=== PATIENT | female | born 1930 | race African-American/Black ===

== ENCOUNTER 2016-08-06 10:09 | Day surgery (SDC) | payer MEDICARE, MEDICAID ==
[~2016-08-06] VITALS: Ht 160 cm; Wt 49.9 kg
[2016-08-06] MEDS ORDERED: FENTANYL CITRATE/PF 50MCG/ML 2ML VIAL ONE (10:26)
[2016-08-06 10:45] VITALS: BP 187/94
[2016-08-06 10:55] VITALS: BP 187/94
[2016-08-06] MEDS ORDERED: PHENOBARB (10:57)
[2016-08-06] MEDS ORDERED: DIGO250T4 PO (10:57)
[2016-08-06] MEDS ORDERED: PHEN100C4 PO (10:57)
[2016-08-06 11:00] VITALS: BP 185/79
[2016-08-06] MEDS ORDERED: FENTANYL CITRATE/PF 50MCG/ML 2ML VIAL IV ONE (11:15)
[2016-08-06 11:24] VITALS: BP 185/76
[2016-08-06 11:26] VITALS: BP 185/76
[2016-08-06] MEDS ORDERED: ACETAMINOPHEN 325MG TABLET PO SCH (14:08)
== END 2016-08-06 15:30 | disposition home or self-care (01) ==
LOC: RAD 10:09
PROVIDERS: ATTEND Internal Medicine
DX: R91.8 Other nonspecific abnormal finding of lung field (principal)
CPT/HCPCS: 32405; 71010; 77012; 88305; J3010

== ENCOUNTER → 2017-07-28 | Outpatient (CLI) | payer MEDICARE, MEDICAID ==
[~2017-07-28] MED LIST: DIGO250T4 PO; PHEN100C4 PO; PHENOBARB
== END | disposition home or self-care (01) ==
LOC: MAMMO 10:34
PROVIDERS: ATTEND Radiology Radiation Oncology
DX: Z85.3 Personal history of malignant neoplasm of breast (principal); Z85.89 Personal history of malignant neoplasm of other organs and systems; C34.32 Malignant neoplasm of lower lobe, left bronchus or lung
CPT/HCPCS: 77066

== ENCOUNTER → 2017-08-03 | Outpatient (CLI) | payer MEDICARE, MEDICAID | END | disposition home or self-care (01) | LOC: US 08:49 | PROVIDERS: ATTEND Radiology Radiation Oncology | DX: N63.10 Unspecified lump in the right breast, unspecified quadrant (principal); N60.11 Diffuse cystic mastopathy of right breast | CPT/HCPCS: 76641 ==

== ENCOUNTER 2018-07-09 13:50 | Inpatient (IN) | payer MEDICARE, MEDICAID ==
[~2018-07-09] VITALS: Ht 160 cm; Wt 51.7 kg
[2018-07-09] MEDS ORDERED: SODIUM CHLORIDE 0.9% 1000ML BAG (SEPSIS BOLUS) IV ONE (14:30)
[2018-07-09] MEDS ORDERED: LEVOFLOXACIN 750MG PREMIX 150 ML IV ONE (14:30)
[2018-07-09 14:56] LABS: CHLORIDE 109 mEq/L (98-107)
[2018-07-09 14:58] LABS: INR 1.1; PARTIAL THROMBOPLASTIN TIME 22.1 sec (23.4-31.0); PROTHROMBIN TIME 11.6 sec (9.6-11.0)
[2018-07-09 15:07] LABS: PHENOBARBITAL < 2.1 ug/mL (15.0-40.0)
[2018-07-09 15:19] LABS: DIGOXIN 0.9 ng/mL (0.9-2.0)
[2018-07-09 15:53] LABS: MEAN CORPUSCULAR HEMOGLOBIN 23.4 pg (28.0-32.0); MEAN PLATELET VOLUME 6.2 fl (7.4-10.4); PLATELET 319 x1000/uL (130-400); RED BLOOD CELL COUNT 2.36 mill/uL (4.2-5.4); RED CELL DISTRIBUTION WIDTH 16.4 % (11.6-14.6)
[2018-07-09 16:03] LABS: HEMATOCRIT. 17.7 % (36.0-48.0); HEMOGLOBIN. 5.5 g/dL (12.0-16.0)
[2018-07-09 16:46] LABS: CLARITY URINE CLEAR (CLEAR); COLOR URINE YELLOW (YELLOW); KETONES URINE NEGATIVE (NEGATIVE); LEUKOCYTE ESTERASE URINE NEGATIVE (NEGATIVE); NITRITE URINE NEGATIVE (NEGATIVE); OCCULT BLOOD URINE TRACE (NEGATIVE); PH URINE 5.5 (4.5-8.0); PROTEIN URINE 1+ (NEGATIVE); SPECIFIC GRAVITY URINE 1.017 (1.005-1.030)
[2018-07-09] MEDS ORDERED: LORAZEPAM 0.5MG TABLET PO PRN (19:30)
[2018-07-09] MEDS ORDERED: ACETAMINOPHEN 325MG TABLET PO PRN (19:30)
[2018-07-09] MEDS ORDERED: CLONIDINE 0.1MG TABLET PO PRN ×2 (19:30→20:13)
[2018-07-09] MEDS ORDERED: DOCUSATE SODIUM 100MG CAPSULE PO PRN (19:30)
[2018-07-09] MEDS ORDERED: GUAIFENESIN 200MG/10ML SUGAR FREE UDC PO PRN (19:30)
[2018-07-09 19:43] LABS: PLATELET ESTIMATE NORMAL
[2018-07-09 20:56] LABS: DIGOXIN 1.1 ng/mL (0.9-2.0)
[2018-07-09 22:30] VITALS: BP 134/66
[2018-07-09 23:49] VITALS: BP 134/66
[2018-07-10] VITALS (9 sets, daily range): BP systolic 117–154; BP diastolic 60–76
[2018-07-10] MEDS: PHENYTOIN SODIUM EXTENDED 100MG CAPSULE PO SCH ×3 (00:27→17:41)
[2018-07-10] MEDS: DEXT 5%/0.45% NACL 1000ML 1,000 ML IV SCH (00:28)
[2018-07-10 06:49] LABS: CHLORIDE 110 mEq/L (98-107)
[2018-07-10 07:40] LABS: BASOPHILS % 1.3 % (0.0-2.0); EOSINOPHILS % 7.1 % (0.0-5.0); HEMATOCRIT. 21.2 % (36.0-48.0); MEAN CORPUSCULAR HEMOGLOBIN 25.1 pg (28.0-32.0); MEAN CORPUSCULAR VOLUME 77.3 fL (81.0-99.0); MEAN PLATELET VOLUME 6.5 fl (7.4-10.4); MONOCYTES % 8.8 % (2.0-8.0); NEUTROPHILS % 72.8 % (40.0-76.0); PLATELET 266 x1000/uL (130-400); RED BLOOD CELL COUNT 2.74 mill/uL (4.2-5.4); RED CELL DISTRIBUTION WIDTH 17.7 % (11.6-14.6)
[2018-07-10 08:02] LABS: HEMOGLOBIN. 6.9 g/dL (12.0-16.0)
[2018-07-10] MEDS: FERROUS SULFATE 325MG TABLET PO SCH ×3 (08:39→17:42)
[2018-07-10] MEDS: DIGOXIN 125MCG TABLET PO SCH (17:42)
[2018-07-10 22:10] LABS: HEMATOCRIT 25.3 % (36.0-48.0); HEMOGLOBIN 8.6 g/dL (12.0-16.0)
[2018-07-11] VITALS: BP_SYST 145; BP_SYST 156; BP_DIAS 77; BP_DIAS 86
[2018-07-11] MEDS: DEXT 5%/0.45% NACL 1000ML 1,000 ML IV SCH ×2 (01:10→14:59)
[2018-07-11 04:00] VITALS: BP 161/83
[2018-07-11 06:50] LABS: EOSINOPHILS % 13.8 % (0.0-5.0); HEMATOCRIT. 24.2 % (36.0-48.0); HEMOGLOBIN. 8.2 g/dL (12.0-16.0); LYMPHOCYTES % 8.5 % (20.0-50.0); MEAN CORPUSCULAR HEMOGLOBIN 26.4 pg (28.0-32.0); MEAN PLATELET VOLUME 6.6 fl (7.4-10.4); MONOCYTES % 9.8 % (2.0-8.0); NEUTROPHILS % 66.9 % (40.0-76.0); PLATELET 243 x1000/uL (130-400); RED CELL DISTRIBUTION WIDTH 18.3 % (11.6-14.6)
[2018-07-11 07:26] LABS: CHLORIDE 108 mEq/L (98-107)
[2018-07-11 08:00] VITALS: BP 140/76
[2018-07-11] MEDS: PHENYTOIN SODIUM EXTENDED 100MG CAPSULE PO SCH ×2 (08:18→16:01)
[2018-07-11] MEDS: FERROUS SULFATE 325MG TABLET PO SCH ×3 (08:18→16:57)
[2018-07-11] MEDS ORDERED: LEVOFLOXACIN 500MG PREMIX 100 ML IV SCH ×2 (09:00→09:45)
[2018-07-11] MEDS ORDERED: MECL-127 MT (09:48)
[2018-07-11] MEDS ORDERED: FERR325T6 MT (09:48)
[2018-07-11] MEDS ORDERED: METH-612 MT (09:48)
[2018-07-11] MEDS ORDERED: PHEN32.43 MT (09:48)
[2018-07-11] MEDS: LEVOFLOXACIN 500MG PREMIX 100 ML IV SCH (11:49)
[2018-07-11 12:00] VITALS: BP 156/75
[2018-07-11] MEDS ORDERED: BACTERIOSTATIC SODIUM CHLORIDE 0.9% 30ML VIAL IJ ONE (13:41)
[2018-07-11 16:00] VITALS: BP 169/86
[2018-07-11] MEDS ORDERED: MIDAZOLAM HCL 5 MG/5 ML VIAL ONE (16:43)
[2018-07-11] MEDS ORDERED: FENTANYL CITRATE/PF 50MCG/ML 2ML VIAL ONE (16:43)
[2018-07-11] MEDS ORDERED: MIDAZOLAM HCL 5 MG/5 ML VIAL IV PRN (16:45)
[2018-07-11] MEDS: DIGOXIN 125MCG TABLET PO SCH (17:07)
[2018-07-11] MEDS ORDERED: IOHEXOL-300 100 ML BOTTLE ONE (19:41)
[2018-07-11 20:00] VITALS: BP 141/75
[2018-07-12] VITALS: BP 134/73
[2018-07-12 04:00] VITALS: BP 140/74
[2018-07-12] MEDS: DEXT 5%/0.45% NACL 1000ML 1,000 ML IV SCH ×2 (04:53→17:42)
[2018-07-12] MEDS: FERROUS SULFATE 325MG TABLET PO SCH ×3 (06:54→17:42)
[2018-07-12 08:00] VITALS: BP 104/71
[2018-07-12] MEDS: PHENYTOIN SODIUM EXTENDED 100MG CAPSULE PO SCH ×2 (08:54→17:42)
[2018-07-12 12:00] VITALS: BP 164/78
[2018-07-12 16:00] VITALS: BP 142/73
[2018-07-12] MEDS ORDERED: NA PHOS,M-B/NA PHOS,DI-BA ENEMA 118ML PR NR (18:15)
[2018-07-12] MEDS: DIGOXIN 125MCG TABLET PO SCH (18:57)
[2018-07-12 20:00] VITALS: BP 154/81
[2018-07-12] MEDS ORDERED: SORBITOL 70% SOLN 30ML PO NR (21:00)
[2018-07-12] MEDS: ONDANSETRON HCL 4MG/2ML INJ IV PRN (22:47)
[2018-07-13] VITALS: BP 142/78
[2018-07-13 04:00] VITALS: BP 147/78
[2018-07-13] MEDS ORDERED: SORBITOL 70% SOLN 30ML PO NR (06:00)
[2018-07-13 06:08] LABS: CHLORIDE 109 mEq/L (98-107)
[2018-07-13] MEDS: FERROUS SULFATE 325MG TABLET PO SCH ×3 (06:21→19:30)
[2018-07-13] MEDS: DEXT 5%/0.45% NACL 1000ML 1,000 ML IV SCH ×2 (06:22→19:32)
[2018-07-13] MEDS: ONDANSETRON HCL 4MG/2ML INJ IV PRN (06:26)
[2018-07-13 07:30] LABS: HEMATOCRIT 25.2 % (36.0-48.0); HEMOGLOBIN 8.5 g/dL (12.0-16.0); MEAN CORPUSCULAR HEMOGLOBIN 26.6 pg (28.0-32.0); MEAN CORPUSCULAR VOLUME 78.7 fL (81.0-99.0); PLATELET 267 x1000/uL (130-400); RED CELL DISTRIBUTION WIDTH 18.9 % (11.6-14.6)
[2018-07-13 08:00] VITALS: BP 125/74
[2018-07-13] MEDS ORDERED: NA PHOS,M-B/NA PHOS,DI-BA ENEMA 118ML PR NR (09:00)
[2018-07-13] MEDS ORDERED: BACTERIOSTATIC SODIUM CHLORIDE 0.9% 30ML VIAL IJ ONE (09:55)
[2018-07-13] MEDS: PHENYTOIN SODIUM EXTENDED 100MG CAPSULE PO SCH ×2 (09:59→19:30)
[2018-07-13] MEDS ORDERED: POTASSIUM CHLORIDE 20MEQ/PACKET PO NR (10:38)
[2018-07-13] MEDS: LEVOFLOXACIN 500MG PREMIX 100 ML IV SCH (11:00)
[2018-07-13 12:00] VITALS: BP 123/66
[2018-07-13] MEDS ORDERED: SIMETHICONE 40 MG/0.6 ML 30ML ONE (15:50)
[2018-07-13] MEDS ORDERED: MIDAZOLAM HCL 5 MG/5 ML VIAL ONE ×2 (16:02→16:41)
[2018-07-13] MEDS ORDERED: FENTANYL CITRATE/PF 50MCG/ML 2ML VIAL ONE (16:02)
[2018-07-13] MEDS ORDERED: MIDAZOLAM HCL 5 MG/5 ML VIAL IV PRN (16:27)
[2018-07-13] MEDS: DIGOXIN 125MCG TABLET PO SCH (19:30)
[2018-07-13 19:52] LABS: HEMATOCRIT 28.4 % (36.0-48.0); HEMOGLOBIN 9.2 g/dL (12.0-16.0); MEAN CORPUSCULAR HEMOGLOBIN 25.9 pg (28.0-32.0); PLATELET 262 x1000/uL (130-400); RED BLOOD CELL COUNT 3.55 mill/uL (4.2-5.4); RED CELL DISTRIBUTION WIDTH 18.8 % (11.6-14.6)
[2018-07-13 19:59] LABS: CHLORIDE 111 mEq/L (98-107)
[2018-07-13 20:00] VITALS: BP 156/68
[2018-07-14] VITALS: BP 128/59
[2018-07-14 04:00] VITALS: BP 128/71
[2018-07-14 06:32] LABS: BASOPHILS % 0.9 % (0.0-2.0); EOSINOPHILS % 10.2 % (0.0-5.0); HEMATOCRIT. 26.5 % (36.0-48.0); HEMOGLOBIN. 8.5 g/dL (12.0-16.0); LYMPHOCYTES % 7.9 % (20.0-50.0); MEAN CORPUSCULAR HEMOGLOBIN 25.9 pg (28.0-32.0); MEAN CORPUSCULAR VOLUME 80.4 fL (81.0-99.0); MEAN PLATELET VOLUME 6.6 fl (7.4-10.4); MONOCYTES % 5.5 % (2.0-8.0); NEUTROPHILS % 75.5 % (40.0-76.0); PLATELET 240 x1000/uL (130-400); RED BLOOD CELL COUNT 3.29 mill/uL (4.2-5.4); RED CELL DISTRIBUTION WIDTH 19.7 % (11.6-14.6)
[2018-07-14 06:46] LABS: CHLORIDE 109 mEq/L (98-107)
[2018-07-14 08:00] VITALS: BP 125/65
[2018-07-14] MEDS: FERROUS SULFATE 325MG TABLET PO SCH ×3 (08:45→17:45)
[2018-07-14] MEDS: PHENYTOIN SODIUM EXTENDED 100MG CAPSULE PO SCH ×2 (08:45→17:45)
[2018-07-14] MEDS: DEXT 5%/0.45% NACL 1000ML 1,000 ML IV SCH ×2 (08:45→22:30)
[2018-07-14 12:00] VITALS: BP 144/73
[2018-07-14 16:00] VITALS: BP 124/64
[2018-07-14] MEDS: DIGOXIN 125MCG TABLET PO SCH (17:44)
[2018-07-14 20:00] VITALS: BP 159/76
[2018-07-14] MEDS: CLARITHROMYCIN 500MG TABLET PO SCH (21:16)
[2018-07-14] MEDS: OMEPRAZOLE 20MG CAPSULE EXTENDED RELEASE PO SCH (21:17)
[2018-07-14] MEDS: ONDANSETRON HCL 4MG/2ML INJ IV PRN (22:46)
[2018-07-15] VITALS: BP 142/74
[2018-07-15 04:00] VITALS: BP 139/70
[2018-07-15] MEDS: OMEPRAZOLE 20MG CAPSULE EXTENDED RELEASE PO SCH ×2 (05:30→20:35)
[2018-07-15 06:53] LABS: HEMATOCRIT. 23.6 % (36.0-48.0); MEAN CORPUSCULAR HEMOGLOBIN 26.8 pg (28.0-32.0); MEAN CORPUSCULAR VOLUME 78.6 fL (81.0-99.0); MEAN PLATELET VOLUME 6.7 fl (7.4-10.4); PLATELET 211 x1000/uL (130-400); RED CELL DISTRIBUTION WIDTH 19.9 % (11.6-14.6)
[2018-07-15 07:33] LABS: CHLORIDE 107 mEq/L (98-107)
[2018-07-15 08:00] VITALS: BP 138/77
[2018-07-15] MEDS: CLARITHROMYCIN 500MG TABLET PO SCH ×2 (08:59→20:35)
[2018-07-15] MEDS: FERROUS SULFATE 325MG TABLET PO SCH ×3 (08:59→17:20)
[2018-07-15] MEDS: PHENYTOIN SODIUM EXTENDED 100MG CAPSULE PO SCH ×2 (08:59→17:00)
[2018-07-15 10:21] LABS: PLATELET ESTIMATE NORMAL
[2018-07-15 12:05] VITALS: BP 139/78
[2018-07-15 16:00] VITALS: BP 155/67
[2018-07-15] MEDS: DIGOXIN 125MCG TABLET PO SCH (17:14)
[2018-07-15] MEDS: DEXT 5%/0.45% NACL 1000ML 1,000 ML IV SCH (17:19)
[2018-07-15] MEDS: LEVOFLOXACIN 500MG PREMIX 100 ML IV SCH (17:19)
[2018-07-15 20:00] VITALS: BP 138/76
[2018-07-16] VITALS: BP 124/74
[2018-07-16 04:00] VITALS: BP 140/71
[2018-07-16] MEDS: DEXT 5%/0.45% NACL 1000ML 1,000 ML IV SCH (04:51)
[2018-07-16] MEDS: OMEPRAZOLE 20MG CAPSULE EXTENDED RELEASE PO SCH (06:08)
[2018-07-16 08:00] VITALS: BP 144/70
[2018-07-16] MEDS: CLARITHROMYCIN 500MG TABLET PO SCH (08:12)
[2018-07-16] MEDS: PHENYTOIN SODIUM EXTENDED 100MG CAPSULE PO SCH (08:12)
[2018-07-16] MEDS: FERROUS SULFATE 325MG TABLET PO SCH (08:12)
[2018-07-16 10:57] VITALS: BP 144/70
[2018-07-16 12:00] VITALS: BP 154/80
== END 2018-07-16 14:55 | disposition home health service (06) | DRG 871 ==
LOC: ER 13:51 → EDBEDREQ 14:20 → 5WST 16:32 → EDBEDREQ 16:34 → ENRESERV 21:26
PROVIDERS: ADMIT Internal Medicine; ATTEND Internal Medicine
PROC: 30233N1 Transfusion of Nonautologous Red Blood Cells into Peripheral Vein, Percutaneous Approach (ICD-10-PCS; 2018-07-09)
PROC: 0DB68ZX Excision of Stomach, Via Natural or Artificial Opening Endoscopic, Diagnostic (ICD-10-PCS; principal; 2018-07-11)
PROC: 0DBK8ZX Excision of Ascending Colon, Via Natural or Artificial Opening Endoscopic, Diagnostic (ICD-10-PCS; 2018-07-13)
PROC: 0DBH8ZX Excision of Cecum, Via Natural or Artificial Opening Endoscopic, Diagnostic (ICD-10-PCS; 2018-07-13)
DX: A41.9 Sepsis, unspecified organism (principal); J18.1 Lobar pneumonia, unspecified organism; E46 Unspecified protein-calorie malnutrition; C78.7 Secondary malignant neoplasm of liver and intrahepatic bile duct; C18.2 Malignant neoplasm of ascending colon; C18.0 Malignant neoplasm of cecum; C34.92 Malignant neoplasm of unspecified part of left bronchus or lung; J91.0 Malignant pleural effusion; F41.9 Anxiety disorder, unspecified; B96.81 Helicobacter pylori [H. pylori] as the cause of diseases classified elsewhere; K64.8 Other hemorrhoids; K29.50 Unspecified chronic gastritis without bleeding; F51.04 Psychophysiologic insomnia; K44.9 Diaphragmatic hernia without obstruction or gangrene; K56.41 Fecal impaction; E07.89 Other specified disorders of thyroid; D50.0 Iron deficiency anemia secondary to blood loss (chronic); R62.7 Adult failure to thrive; I50.9 Heart failure, unspecified; G40.909 Epilepsy, unspecified, not intractable, without status epilepticus; I11.0 Hypertensive heart disease with heart failure; M19.90 Unspecified osteoarthritis, unspecified site; Z85.3 Personal history of malignant neoplasm of breast; Z87.891 Personal history of nicotine dependence; Z92.3 Personal history of irradiation; Z88.0 Allergy status to penicillin; Z79.899 Other long term (current) drug therapy; Z86.73 Personal history of transient ischemic attack (TIA), and cerebral infarction without residual deficits; Z88.6 Allergy status to analgesic agent; Z68.20 Body mass index [BMI] 20.0-20.9, adult
CPT/HCPCS: 36415; 71045; 71260; 74177; 80048; 80162; 80184; 80185; 82040; 82270; 82378; 83605; 83735; 83880; 84145; 84484; 85014; 85018; 85027; 86850; 86900; 86920; 88305; 88312; 88313; 93005; 93970; 96374; 97162; 99285; J1956; J2250; J2405; J3010; J3490; J7030; J7050; P9016; P9021; Q9967